=== PATIENT | male | born 1960 | race Caucasian/White ===

== ENCOUNTER 2019-05-15 14:17 | Outpatient (REF) | payer SELFPAY ==
[2019-05-15 19:12] LABS: Anion Gap 10.7 mmol/L (3-11); BUN 21 mg/dL (7-18); CO2 27.3 mmol/L (21.0-32.0); CREATININE 0.88 mg/dL (0.70-1.30); Calcium 8.6 mg/dL (8.5-10.1); Chloride 105 mmol/L (98-107); Glucose 91 mg/dL (70-100); Potassium 3.8 mmol/L (3.5-5.1); Sodium 143 mmol/L (136-145)
[2019-05-15 19:44] LABS: COMMENT (LAB VIEW ONLY) 259.33 mg/dL; Microalb ug/mg Crea 4.4 ug/mg Cr
== END 2019-05-15 14:37 ==
LOC: NCHCN 14:17
PROVIDERS: PCP Physician Assistant; Visit Provider Physician Assistant Medical
DX: E11.9 Type 2 diabetes mellitus without complications (principal)
CPT/HCPCS: 80048; 82043; 82570

== ENCOUNTER 2022-02-11 19:19 | Outpatient (REF) | payer MEDICAID, SELFPAY | END 2022-02-11 19:20 | disposition home or self-care (01) | LOC: NCHCN 19:19 | PROVIDERS: PCP Physician Assistant; Visit Provider Nurse Practitioner Family | DX: L08.9 Local infection of the skin and subcutaneous tissue, unspecified (principal); R31.9 Hematuria, unspecified | CPT/HCPCS: 87070; 87086 ==

== ENCOUNTER 2022-02-24 16:34 | Outpatient (REF) | payer MEDICAID, SELFPAY ==
[2022-02-24 21:07] LABS: Abs Immature Grans 0.03 10^3/uL (0.0-0.06); Absolute Basophil Count 0.05 10^3/uL (0.0-0.2); Absolute Eosinophil Count 0.12 10^3/uL (0.0-0.7); Absolute Lymphocyte Count 2.39 10^3/uL (1.2-3.4); Absolute Monocyte Count 0.69 10^3/uL (0.1-0.8); Absolute Neutrophil Count 4.22 10^3/uL (1.2-6.7); Basophils % 0.7; Eosinophils % 1.6; HCT 43.8 % (40.0-50.0); HGB 14.8 g/dL (13.5-17.5); Immature Grans % 0.4; Lymphocytes % 31.9; MCH 31.6 pg (27.0-33.0); MCHC 33.8 % (32.0-36.0); MCV 93.4 fL (80-95); MPV 9.3 fL (8.0-11.0); Monocytes % 9.2; Neutrophils % 56.2; Nucleated RBC 0 %; Platelet Count 344 10^3/uL (130-400); RBC 4.69 10^6/uL (4.36-5.78)
[2022-02-24 21:11] LABS: Prothrombin Time 9.7 sec (9.3-11.0)
[2022-02-24 21:12] LABS: ALT 30 U/L (16-63); Albumin 3.8 g/dL (3.4-5.0); Alkaline Phosphatase 102 U/L (46-116); Anion Gap 5.8 mmol/L (3-11); BUN 16 mg/dL (7-18); Bilirubin, Total 0.4 mg/dL (0.2-1.0); CO2 31.2 mmol/L (21.0-32.0); Calcium 8.9 mg/dL (8.5-10.1); Chloride 105 mmol/L (98-107); Glucose 124 mg/dL (74-106); Potassium 4.1 mmol/L (3.5-5.1); Sodium 142 mmol/L (136-145)
[2022-02-24 21:34] LABS: AST 14 U/L (15-37)
== END 2022-02-24 16:35 | disposition home or self-care (01) ==
LOC: NCHCN 16:34
PROVIDERS: PCP Physician Assistant; Visit Provider Physician Assistant
DX: K76.89 Other specified diseases of liver (principal)
CPT/HCPCS: 80053; 85025; 85610

== ENCOUNTER 2022-10-26 09:00 | Outpatient (CLI) | payer MEDICAID, SELFPAY | END 2022-10-26 09:01 | disposition home or self-care (01) | LOC: DI.CARD 09:03 | PROVIDERS: PCP Physician Assistant; Visit Provider Internal Medicine Cardiovascular Disease | CPT/HCPCS: 93010 ==

== ENCOUNTER 2022-11-27 08:36 | Outpatient (CLI) | payer MEDICAID, SELFPAY ==
--- NOTE | 2022-11-27 08:30 | RT.EKG_ITS ---
APPROVED REPORT Exam: Resting ECG Reason for Exam: evaluation of cardiac status Patient Location: O HR:61 bpm ECG Measurements Heart Rate 61 AXIS MT 215 P 44 QRSd 107 QRS 17 QT 402 T 61 QTc 405 Conclusion Sinus rhythm...normal P axis, V-rate 50- 99 Borderline first-degree AV block
== END 2022-11-27 08:37 | disposition home or self-care (01) ==
LOC: DI.CARD 08:37
PROVIDERS: PCP Physician Assistant; Visit Provider Internal Medicine Cardiovascular Disease
DX: I25.10 Atherosclerotic heart disease of native coronary artery without angina pectoris (principal); E78.5 Hyperlipidemia, unspecified; I44.0 Atrioventricular block, first degree
CPT/HCPCS: 93010

== ENCOUNTER 2023-01-18 16:39 | Outpatient (REF) | payer MEDICAID, SELFPAY ==
[2023-01-18 19:15] LABS: ALT 24 U/L (16-63); Anion Gap 7.9 mmol/L (3-11); BUN 16 mg/dL (7-18); CO2 28.1 mmol/L (21.0-32.0); CREATININE 0.9 mg/dL (0.70-1.30); Calcium 9.3 mg/dL (8.5-10.1); Calculated LDL 72 mg/dL (<100); Chloride 107 mmol/L (98-107); Cholesterol 149 mg/dL (<200); Estimated GFR 95.97 (mL/min/1.73m2); Glucose 100 mg/dL (74-106); HDL Cholesterol 43 mg/dL (40-60); Sodium 143 mmol/L (136-145); TSH 0.58 uIU/mL (0.36-3.74); Triglyceride 174 mg/dL (<150)
[2023-01-18 19:28] LABS: Creatine Kinase 68 U/L (39-308)
== END 2023-01-18 16:40 | disposition home or self-care (01) ==
LOC: NCHCN 16:39
PROVIDERS: PCP Physician Assistant; Visit Provider Internal Medicine
DX: E11.9 Type 2 diabetes mellitus without complications (principal); E78.5 Hyperlipidemia, unspecified
CPT/HCPCS: 80048; 80061; 82550; 84443; 84460

== ENCOUNTER → 2023-07-23 00:46 | Outpatient (CLI) | payer MEDICAID, SELFPAY ==
--- NOTE | 2023-07-23 | DI.RAD_ITS ---
Exam(s) XR SACROILIAC JOINTS EXAM: XR SACROILIAC JOINTS CLINICAL HISTORY: LT SACROILITIS, ,M46.1. TECHNIQUE: 2D digital imaging was performed. Three images were obtained. COMPARISON: No exams were available for comparison FINDINGS: Bones: No fracture is present. No bony destructive lesion is seen. Alignment is satisfactory. SI Joint:There is mild sclerosis seen in the left sacroiliac joint. The right sacroiliac joint is un remarkable. No erosions or ankylosis is seen. Soft Tissue: Normal. IMPRESSION: Findings suggesting mild left sacroiliitis. DATA REPOSITORY: RADIATION DOSE DELIVERED:
--- NOTE | 2023-07-23 | DI.RAD_ITS ---
Exam(s) XR CHEST 2V PA LATERAL EXAM: XR CHEST 2V PA LATERAL CLINICAL HISTORY: DYSPNEA ON EXERTION,R06.09 TECHNIQUE: 2D digital imaging was performed of the chest. Two images were obtained. PA and lateral views were obtained. COMPARISON: No exams were available for comparison FINDINGS: MEDIASTINUM: Normal. HEART: Normal. PULMONARY VASCULATURE: Normal. LUNGS: Clear. PLEURAL SPACE: No pleural effusion or pneumothorax. BONE:Within normal limits for the patient's age. OTHER FINDINGS:Normal. IMPRESSION: No acute pulmonary findings. DATA REPOSITORY: RADIATION DOSE DELIVERED:
== END ==
PROVIDERS: PCP Physician Assistant; Visit Provider Internal Medicine
DX: M46.1 Sacroiliitis, not elsewhere classified (principal); R06.09 Other forms of dyspnea
CPT/HCPCS: 71046; 72202

== ENCOUNTER → 2023-07-29 01:13 | Outpatient (CLI) | payer MEDICAID, SELFPAY ==
--- NOTE | 2023-07-29 | ETT_ITS ---
APPROVED REPORT Exam: Exercise Treadmill Patient Location: Out-Patient Room/Bed: Stress Nurse: Valentine Gentile RN Ordering Provider:ALEJANDRA COLLIER, Contact Number: [phone] BMI: 27.87 Baseline Rhythm: Sinus Rhythm Indications: Angina Pectoris Medical History Medical History: HLD, Diabetes, CAD Cardiac Medications: Metoprolol succinate, Clopidogrel, Atorvastatin, Aspirin Allergies: Penicillins Cardiac Risk Factors: Family hx, CVD, Diabetes, HLD Previous Cardiac Procedures: Stents X2 Pretest Chest Pain Characteristics: None Exercise History: Indeterminate Physical Disabilities: None Lung Sounds: Clear to auscultation Heart Sounds: Regular Stress Test Details Test: Exercise stress testing was performed using a Fvaio protocol. Rest Stress HR Resting HR Supine: 64 bpm Max Heart Rate (APMHR): 156 bpm Resting HR Standin bpm Target HR (85% APMHR): 133 bpm Max HR Achieved: 120 bpm % of APMHR: 77 Recovery HR: 59 bpm HR response to stress: Blunted HR response to stress BP Resting BP Supine: 138/78 mmHg Resting BP Standin/70 mmHg Max BP: 160/64 mmHg Recovery BP: 124/78 mmHg BP response to stress: Normal blood pressure response to stress. ECG Resting ECG: Sinus Rhythm Ectopy: None Stress ECG: Sinus Tachycardia ST Change: Nondiagnostic low heart rate Arrhythmia: None Recovery ECG: Sinus Rhythm Recovery ST Change: Nondiagnostic low heart rate Recovery Arrhythmia: None Clinical Reason for Termination: Inability to reach target HR Stress Symptoms: None Exercise duration: 08 min36 sec Highest Stage Reached: Stage 3: 3.4 mph at 14% grade. Exercise capacity: 10.16 METs Angina Score: None Mcghee Treadmill Score: 8.4 Rate Pressure Product: [id number] Stress ECG Conclusion 1. The resting electrocardiogram showed poor R wave progression 2. Patient exercised on a Favio protocol and completed a work load of 10.16 METS, stopping due to fat igue 3. Normal heart rate and blood pressure response to exercise. Patient achieved 77% of predicted hear t rate for age 4. At that level of exercise and heart rate, there was no evidence of myocardial ischemia though the test was submaximal 5. No dysrhythmias were noted Mcghee Treadmill Score is 8.4 which is Low risk. Stress Test Summary STAGE Time (mins) Speed (mph) Grade (%) HR BP SpO2 SYMPTOMS METS Supine 64 138/78 98 Standing 67 124/70 1 3 1.7 10 84 136/64 4.5 2 6 2.5 12 103 148/68 7 3 9 3.4 14 120 10 1 min recovery 96 160/64 3 min recovery 63 148/72 6 min recovery 59 124/78 Unable to reach patient's target HR due to blunted HR and significant artificat.
== END ==
PROVIDERS: PCP Physician Assistant; Visit Provider Internal Medicine
DX: I20.9 Angina pectoris, unspecified (principal)
CPT/HCPCS: 93017

== ENCOUNTER 2023-12-13 15:12 | Outpatient (REF) | payer MEDICAID, SELFPAY ==
[2023-12-13 19:16] LABS: Hemoglobin A1C 5.9 % (<5.7)
[2023-12-13 19:24] LABS: ALT 43 U/L (16-63); Anion Gap 6.2 mmol/L (3-11); BUN 16 mg/dL (7-18); CO2 29.8 mmol/L (21.0-32.0); Calcium 10.1 mg/dL (8.5-10.1); Chloride 103 mmol/L (98-107); Estimated GFR 84.05 (mL/min/1.73m2); Glucose 148 mg/dL (74-106); LDL CHOLESTEROL 103 mg/dL (<100); Potassium 4.4 mmol/L (3.5-5.1); Sodium 139 mmol/L (136-145)
== END 2023-12-13 15:13 | disposition home or self-care (01) ==
LOC: NCHCN 15:12
PROVIDERS: PCP Physician Assistant; Visit Provider Internal Medicine
DX: E78.5 Hyperlipidemia, unspecified (principal); E11.9 Type 2 diabetes mellitus without complications; R25.1 Tremor, unspecified
CPT/HCPCS: 80048; 83721; 83036; 84443; 84460

== ENCOUNTER 2025-09-27 20:43 | Outpatient (REF) | payer MEDICARE, SELFPAY ==
[2025-09-27 21:27] LABS: ALT 33 U/L (16-63); AST 18 U/L (15-37); Albumin 4.1 g/dL (3.4-5.0); Alkaline Phosphatase 107 U/L (46-116); Anion Gap 7.9 mmol/L (3-11); BUN 18 mg/dL (7-18); Bilirubin, Total 0.8 mg/dL (0.2-1.0); CO2 29.1 mmol/L (21.0-32.0); Calcium 9.5 mg/dL (8.5-10.1); Chloride 103 mmol/L (98-107); Cholesterol 150 mg/dL (<200); Glucose 151 mg/dL (74-106); HDL Cholesterol 40 mg/dL (>or=40); Potassium 4.4 mmol/L (3.5-5.1); Sodium 140 mmol/L (136-145); Total Protein 7.7 g/dL (6.4-8.2)
== END 2025-09-27 20:44 | disposition home or self-care (01) ==
LOC: NCHCN 20:43
PROVIDERS: PCP Physician Assistant; Visit Provider Physician Assistant
DX: E78.5 Hyperlipidemia, unspecified (principal)
CPT/HCPCS: 80053; 80061